=== PATIENT | male | born 1960 | race Asian ===

== ENCOUNTER 2023-06-19 20:04 | Emergency (ER) | payer OTHER ==
[~2023-06-19] VITALS: Ht 160 cm; Wt 78.9 kg
[~2023-06-19 20:04] MED LIST: LISI40TA14 PO
[2023-06-19 20:18] VITALS: BP 110/76; PULSE 90; RESP 11; TEMP 97; O2SAT 95
[2023-06-19] MEDS: NACL 0.9% 1,000 ML IV ONE (20:52)
[2023-06-19] MEDS: methylPREDNISolone SS 125 MG/2 ML VIAL IVP ONE (20:59)
[2023-06-19] MEDS: FAMOTIDINE 20 MG/2 ML VIAL IVP ONE (20:59)
[2023-06-19] MEDS ORDERED: DIPH25TA53 PO (21:51)
[2023-06-19] MEDS ORDERED: ONDA-188 SL (21:51)
[2023-06-19 22:25] VITALS: BP 124/64; PULSE 95; RESP 25; TEMP 98.6; O2SAT 93
== END 2023-06-19 23:04 | disposition home or self-care (01) ==
LOC: MED 20:04
DX: Z00.8 Encounter for other general examination (principal); T36.0X5A Adverse effect of penicillins, initial encounter; Y92.89 Other specified places as the place of occurrence of the external cause
CPT/HCPCS: 96361; 96374; 96375; 99284; J2930; J3490; J7030

== ENCOUNTER 2023-10-28 16:40 | Emergency (ER) | payer OTHER ==
[~2023-10-28] VITALS: Ht 160 cm; Wt 78.0 kg
[~2023-10-28 16:40] MED LIST changes: +DIPH25TA53 PO; +ONDA-188 SL
[2023-10-28 16:48] VITALS: BP 94/60; PULSE 122; RESP 18; TEMP 97.9; O2SAT 93
[2023-10-28 17:06] VITALS: O2SAT 95
[2023-10-28 18:06] LABS: APPEARANCE,URINE CLEAR (CLEAR); BILIRUBIN,URINE 1+ (NEGATIVE); BLOOD, URINE TRACE-I (NEGATIVE); COLOR,URINE YELLOW (YELLOW); LEUKOCYTE ESTERASE ,URINE NEGATIVE (NEGATIVE); NITRITE, URINE NEGATIVE (NEGATIVE); PH,URINE 5.5 (5.0-9.0); PROTEIN,URINE 2+ (NEGATIVE); UGLUCOSE NEGATIVE (NEGATIVE)
[2023-10-28 18:17] LABS: ICTOTEST NEGATIVE (NEGATIVE)
[2023-10-28 18:19] LABS: BACTERIA,URINE >30 (MANY) /HPF (None Seen); MUCUS,URINE 3+ /LPF (None Seen); SQUAMOUS EPITHELIAL CELL,UR >10 (MANY) /LPF (0-3 (FEW)); YEAST,URINE None Seen /HPF (None Seen)
[2023-10-28 18:21] LABS: COARSE GRANULAR CASTS,URINE 0-10 /LPF (None Seen); OTHER CASTS, URINE None Seen /LPF (None Seen); RED BLOOD CELL CASTS,URINE None Seen /LPF (None Seen); WAXY CASTS,URINE None Seen /LPF (None Seen)
[2023-10-28] MEDS: NACL 0.9% 1,000 ML IV ONE (18:33)
[2023-10-28] MEDS: KETOROLAC 30 MG/ML VIAL IVP ONE (18:51)
[2023-10-28 18:57] LABS: FLU A ANTIGEN negative (NEGATIVE); FLU B ANTIGEN negative (NEGATIVE)
[2023-10-28 19:14] VITALS: BP 116/77; PULSE 107; RESP 37; TEMP 98.1; O2SAT 92; O2SAT 95
[2023-10-28] MEDS ORDERED: AZIT250T4 PO (19:15)
[2023-10-28] MEDS ORDERED: PRED20TA5 PO (19:15)
[2023-10-28] MEDS ORDERED: IBUP-2213 PO (19:15)
[2023-10-28] MEDS ORDERED: OMEP40EC24 PO (19:15)
== END 2023-10-28 19:28 | disposition home or self-care (01) ==
LOC: MED 16:40
DX: R10.13 Epigastric pain (principal); J18.9 Pneumonia, unspecified organism; E11.9 Type 2 diabetes mellitus without complications; I10 Essential (primary) hypertension; Z20.822 Contact with and (suspected) exposure to COVID-19; Z95.1 Presence of aortocoronary bypass graft; Z79.899 Other long term (current) drug therapy; Z88.0 Allergy status to penicillin
CPT/HCPCS: 71045; 81001; 82948; 87086; 87426; 87804; 96374; 99284; J1885; J7030

== ENCOUNTER 2023-10-31 04:00 | Inpatient (IN) | payer OTHER ==
[2023-10-31] VITALS (18 sets, daily range): BP systolic 74–156; BP diastolic 28–96; PULSE 60–189; RESP 16–25; TEMP 96.6–98; O2SAT 95–100
[~2023-10-31] VITALS: Ht 162.6 cm; Wt 81.2 kg
[~2023-10-31 04:00] MED LIST changes: +AZIT250T4 PO; +IBUP-2213 PO; +OMEP40EC24 PO; +PRED20TA5 PO
[2023-10-31] MEDS: NACL 0.9% 1,000 ML IV ONE ×2 (04:20→04:43)
[2023-10-31] MEDS ORDERED: LEVOFLOXACIN IV ONE (04:47)
[2023-10-31] MEDS ORDERED: DEXTROSE IV ONE (04:47)
[2023-10-31] MEDS: NOREPINEPHRINE 4 MG in DEXTROSE 5% 250 ML IV ONE (05:03)
[2023-10-31 05:13] LABS: BASOPHILS % (AUTO) 0.2 % (0.0-2.0); EOSINOPHILS # (AUTO) 0.3 K/uL (0-0.4); HEMATOCRIT 39.2 % (36-52); LYMPHOCYTES # (AUTO) 0.2 K/uL (2.0-11.5); LYMPHOCYTES % (AUTO) 1.8 % (20.5-51.1); MEAN CORPUSCULAR HEMOGLOBIN 28 pg (27-31); MEAN CORPUSCULAR HGB CONC 33 g/dL (33-37); MEAN CORPUSCULAR VOLUME 85.6 fL (80-94); MONOCYTES % (AUTO) 0.4 % (1.7-9.3); NEUTROPHILS % (AUTO) 94.6 % (42.2-75.2); PLATELET COUNT (AUTO) 33 K/uL (140-450); RED BLOOD CELL COUNT(AUTO) 4.58 MIL/uL (4.20-6.10); RED CELL DISTRIBUTION WIDTH 13.9 % (11.6-13.7); WHITE BLOOD COUNT (AUTO) 9.5 K/uL (4.8-10.8)
[2023-10-31] MEDS: NOREPINEPHRINE 4 MG/4 ML VIAL IV ONE ×2 (05:27→06:53)
[2023-10-31 05:30] LABS: FLU A ANTIGEN negative (NEGATIVE); FLU B ANTIGEN NEGATIVE (NEGATIVE)
[2023-10-31 05:41] LABS: ALANINE AMINOTRANSFERASE 32 U/L (12-78); ALBUMIN 1.7 g/dL (3.4-5.0); ALKALINE PHOSPHATASE 271 U/L (50-136); ANION GAP 19.2 (8-16); ASPARTATE AMINOTRANSFERASE 30 U/L (15-37); CALCIUM 7.3 mg/dL (8.5-10.1); CARBON DIOXIDE 18.9 mmol/L (21-32); CHLORIDE 91 mmol/L (98-107); GFR ARICAN-AMERICAN 16 mL/min (>90); GFR NON ARICAN-AMERICAN 13 mL/min (>90); POTASSIUM 3.1 mmol/L (3.5-5.1); SODIUM SERUM 126 mmol/L (136-145); TOTAL BILIRUBIN 1.5 mg/dL (0.0-1.0); TOTAL PROTEIN, SERUM 5.4 g/dL (6.4-8.2)
[2023-10-31 05:53] LABS: GLUCOSE 435 mg/dL (74-106); UREA NITROGEN, BLOOD 129 mg/dL (7-18)
[2023-10-31 05:54] LABS: CREATININE 4.7 mg/dL (0.6-1.3)
[2023-10-31] MEDS ORDERED: ATOR10TA PO (06:08)
[2023-10-31] MEDS ORDERED: LOSA-272 PO (06:08)
[2023-10-31] MEDS ORDERED: AMLO5TAB PO (06:08)
[2023-10-31] MEDS ORDERED: CARV12.5 PO (06:08)
[2023-10-31] MEDS ORDERED: METF-1139 PO (06:08)
[2023-10-31] MEDS ORDERED: HYDR-1090 PO (06:08)
[2023-10-31 06:34] LABS: BLOOD GAS BASE EXCESS -10.8 mmol/L (-2.0-2.0); BLOOD GAS HCO3 15.6 mmol/L (22-26); BLOOD GAS PCO2 36.6 mmHg (35-45); BLOOD GAS PH 7.247 (7.35-7.45); BLOOD GAS PO2 102.9 mmHg (75-100)
[2023-10-31 06:35] LABS: BLOOD GAS O2 SAT% 97.3 % (92.0-98.5)
[2023-10-31] MEDS ORDERED: KETOROLAC 15 MG/ML VIAL ONE (06:49)
[2023-10-31] MEDS: NOREPINEPHRINE 16 MG in DEXTROSE 5% 250 ML IV PRN ×2 (08:19→11:55)
[2023-10-31] MEDS: metroNIDAZOLE 500 MG/NS PREMIX 100 ML IV ONE (08:32)
[2023-10-31] MEDS: LEVOFLOXACIN 750 MG/D5W PREMIX 150 ML IV ONE (08:33)
[2023-10-31] MEDS ORDERED: ONDANSETRON 4 MG/2 ML VIAL IVP PRN (08:55)
[2023-10-31] MEDS ORDERED: DEXTROSE 50% 50 ML SYR IVP PRN (09:00)
[2023-10-31] MEDS: DOCUSATE SODIUM 100 MG GELCAP PO SCH (09:00)
[2023-10-31] MEDS: BLOOD GLUCOSE MONITORING 1 DEV DEV FS SCH (09:00)
[2023-10-31] MEDS ORDERED: POTASSIUM CHLORIDE 10 MEQ TABER PO PRN (09:05)
[2023-10-31 09:31] LABS: INR 1.08 (0.8-1.2); PARTIAL THROMBOPLASTIN TIME 29.1 secs (22-35.6); PROTHROMBIN TIME 11.3 secs (10.8-13.4)
[2023-10-31] MEDS ORDERED: MAG SULF 2000 MG/WATER PREMIX 50 ML IV PRN (10:55)
[2023-10-31] MEDS: INSULIN REGULAR, HUMAN 100 UNIT in NACL 0.9% 100 ML IV SCH (11:01)
[2023-10-31] MEDS: MEROPENEM 500 MG in NACL 0.9% 50 ML IV SCH (11:50)
[2023-10-31] MEDS: NACL 0.9% 1,000 ML IV SCH (11:51)
[2023-10-31] MEDS: KCL 20 MEQ IN 100 mL PREMIX 200 ML IV PRN (11:52)
[2023-10-31] MEDS ORDERED: PIPERACILLIN/TAZOBACTAM 2.25 GM in DEXTROSE 5% 50 ML IV SCH (13:00)
[2023-10-31] MEDS: PANTOPRAZOLE 40 MG INJ VIAL IVP SCH (13:00)
[2023-10-31] MEDS: PHENYLEPHRINE 100 MG in NACL 0.9% 250 ML IV PRN (13:24)
[2023-10-31 13:42] LABS: INR 1.04 (0.8-1.2); PARTIAL THROMBOPLASTIN TIME 26.3 secs (22-35.6); PROTHROMBIN TIME 10.9 secs (10.8-13.4)
[2023-10-31 13:45] LABS: CARBON DIOXIDE 14.8 mmol/L (21-32); POTASSIUM 3.8 mmol/L (3.5-5.1)
[2023-10-31 13:47] LABS: CALCIUM 7.3 mg/dL (8.5-10.1)
[2023-10-31 13:48] LABS: CREATININE 4.6 mg/dL (0.6-1.3)
[2023-10-31] MEDS: diphenhydrAMINE 50 MG/ML VIAL ONE (15:13)
[2023-10-31] MEDS: MIDAZOLAM 5 MG/5 ML VIAL ONE (15:13)
[2023-10-31] MEDS: fentaNYL citrate 0.05 MG/ML VIAL ONE ×2 (15:13→20:33)
[2023-10-31] MEDS: LIDOCAINE 1% 500 MG/50 ML VIAL ONE (15:14)
[2023-10-31] MEDS: MORPHINE SULFATE 2 MG/ML SYR IVP PRN (16:31)
[2023-10-31] MEDS: RACEPINEPHRINE 2.25% 13.5 MG/0.5 ML NEBU INH ONE (16:42)
[2023-10-31] MEDS: PROPOFOL 1000 MG/100 ML PREMIX 100 ML IV ONE (17:19)
[2023-10-31] MEDS ORDERED: NACL 0.9% 1,000 ML IV SCH (17:45)
[2023-10-31 18:09] LABS: BLOOD GAS BASE EXCESS -14.6 mmol/L (-2.0-2.0); BLOOD GAS HCO3 14.9 mmol/L (22-26); BLOOD GAS PCO2 48.4 mmHg (35-45); BLOOD GAS PH 7.105 (7.35-7.45); BLOOD GAS PO2 85.8 mmHg (75-100)
[2023-10-31 18:10] LABS: BLOOD GAS O2 SAT% 95.3 % (92.0-98.5)
[2023-10-31] MEDS ORDERED: VASOPRESSIN 40 UNITS in NACL 0.9% 250 ML IV PRN (18:15)
[2023-10-31 18:26] LABS: BASOPHILS % (AUTO) 0.1 % (0.0-2.0); EOSINOPHILS # (AUTO) 0.1 K/uL (0-0.4); EOSINOPHILS % (AUTO) 0.9 % (0.0-4.0); HEMATOCRIT 38.7 % (36-52); HEMOGLOBIN 12.6 g/dL (12.0-18.0); LYMPHOCYTES # (AUTO) 0.5 K/uL (2.0-11.5); LYMPHOCYTES % (AUTO) 3.5 % (20.5-51.1); MEAN CORPUSCULAR HEMOGLOBIN 28 pg (27-31); MEAN CORPUSCULAR HGB CONC 33 g/dL (33-37); MEAN CORPUSCULAR VOLUME 85.5 fL (80-94); MONOCYTES # (AUTO) 0.4 K/uL (0.8-1.0); MONOCYTES % (AUTO) 3.3 % (1.7-9.3); NEUTROPHILS # (AUTO) 12.5 K/uL (1.8-7.7); NEUTROPHILS % (AUTO) 92.2 % (42.2-75.2); PLATELET COUNT (AUTO) 28 K/uL (140-450); RED BLOOD CELL COUNT(AUTO) 4.52 MIL/uL (4.20-6.10); RED CELL DISTRIBUTION WIDTH 14.1 % (11.6-13.7); WHITE BLOOD COUNT (AUTO) 13.5 K/uL (4.8-10.8)
[2023-10-31] MEDS ORDERED: COMMUNICATION ORDER MC PRN (18:40)
[2023-10-31 18:57] LABS: ANION GAP 18.1 (8-16); CALCIUM 6.8 mg/dL (8.5-10.1); POTASSIUM 4.1 mmol/L (3.5-5.1)
[2023-10-31] MEDS: HYDROCORTISONE NA SUCC 100 MG/2 ML VIAL IV SCH (18:57)
[2023-10-31 19:03] LABS: CREATININE 4.1 mg/dL (0.6-1.3)
[2023-10-31 19:19] LABS: AMYLASE 90 U/L (25-115); LIPASE 223 U/L (16-77)
[2023-10-31] MEDS: fentaNYL citrate 1 MG in NACL 0.9% 80 ML IV PRN (20:10)
[2023-10-31] MEDS: ALBUTEROL SULFATE/IPRATROPIU 3 ML SOL IH SCH (20:11)
[2023-10-31] MEDS: MIDAZOLAM MDV 50 MG in NACL 0.9% 40 ML IV PRN (20:25)
[2023-10-31] MEDS: MIDAZOLAM MDV 50 MG/10 ML VIAL IV ONE (20:33)
[2023-10-31] MEDS ORDERED: MEROPENEM 500 MG in NACL 0.9% 50 ML IV SCH (21:00)
[2023-10-31] MEDS: VASOPRESSIN 40 UNITS in NACL 0.9% 250 ML IV PRN (21:02)
[2023-10-31 21:28] LABS: ANION GAP 18.4 (8-16); CALCIUM 6.7 mg/dL (8.5-10.1); CARBON DIOXIDE 18.8 mmol/L (21-32); CREATININE 3.7 mg/dL (0.6-1.3); POTASSIUM 4.2 mmol/L (3.5-5.1)
[2023-10-31] MEDS: SODIUM BICARBONATE 8.4% PFS 50 MEQ/50 ML SYR IVP SCH (23:24)
[2023-10-31 23:49] LABS: BLOOD GAS PCO2 36.5 mmHg (35-45); BLOOD GAS PH 7.203 (7.35-7.45); BLOOD GAS PO2 133.6 mmHg (75-100)
[2023-10-31 23:50] LABS: BLOOD GAS O2 SAT% 98.7 % (92.0-98.5)
[2023-11-01] VITALS (34 sets, daily range): BP systolic 83–133; BP diastolic 52–84; PULSE 61–84; RESP 10–22; TEMP 96.2–98.5; O2SAT 95–100
[2023-11-01] MEDS: DEXT 5% / NACL 0.45% 1,000 ML IV SCH (01:10)
[2023-11-01 01:50] LABS: ANION GAP 13.3 (8-16); CALCIUM 6.9 mg/dL (8.5-10.1); CARBON DIOXIDE 23.8 mmol/L (21-32); CREATININE 3.6 mg/dL (0.6-1.3); POTASSIUM 4.1 mmol/L (3.5-5.1)
[2023-11-01 04:10] LABS: BASOPHILS % (AUTO) 0.1 % (0.0-2.0); HEMATOCRIT 35.7 % (36-52); LYMPHOCYTES # (AUTO) 0.3 K/uL (2.0-11.5); LYMPHOCYTES % (AUTO) 3.5 % (20.5-51.1); MEAN CORPUSCULAR HEMOGLOBIN 28 pg (27-31); MEAN CORPUSCULAR HGB CONC 34 g/dL (33-37); MEAN CORPUSCULAR VOLUME 84.1 fL (80-94); MONOCYTES # (AUTO) 0.3 K/uL (0.8-1.0); MONOCYTES % (AUTO) 3.4 % (1.7-9.3); NEUTROPHILS # (AUTO) 7.4 K/uL (1.8-7.7); PLATELET COUNT (AUTO) 33 K/uL (140-450); RED BLOOD CELL COUNT(AUTO) 4.24 MIL/uL (4.20-6.10); RED CELL DISTRIBUTION WIDTH 13.9 % (11.6-13.7); WHITE BLOOD COUNT (AUTO) 7.9 K/uL (4.8-10.8)
[2023-11-01 04:34] LABS: ALBUMIN 1.6 g/dL (3.4-5.0); ANION GAP 16.6 (8-16); CALCIUM 6.7 mg/dL (8.5-10.1); CARBON DIOXIDE 18.9 mmol/L (21-32); CREATININE 3.5 mg/dL (0.6-1.3); POTASSIUM 3.5 mmol/L (3.5-5.1); TOTAL BILIRUBIN 1.3 mg/dL (0.0-1.0); TOTAL PROTEIN, SERUM 5.2 g/dL (6.4-8.2)
[2023-11-01 08:13] LABS: BLOOD GAS PCO2 31.1 mmHg (35-45); BLOOD GAS PO2 112.9 mmHg (75-100)
[2023-11-01 08:14] LABS: BLOOD GAS BASE EXCESS -9.8 mmol/L (-2.0-2.0); BLOOD GAS HCO3 15.3 mmol/L (22-26); BLOOD GAS O2 SAT% 98.3 % (92.0-98.5)
[2023-11-01 08:28] LABS: ANION GAP 15.5 (8-16); CALCIUM 6.9 mg/dL (8.5-10.1); CARBON DIOXIDE 19.1 mmol/L (21-32); CREATININE 3.5 mg/dL (0.6-1.3); POTASSIUM 3.6 mmol/L (3.5-5.1)
[2023-11-01] MEDS: HYDROCORTISONE NA SUCC 100 MG/2 ML VIAL IV SCH (09:08)
[2023-11-01] MEDS: MIDAZOLAM 2 MG/2 ML VIAL ONE (10:23)
[2023-11-01] MEDS: ETOMIDATE 20 MG/10 ML VIAL IVP ONE (10:24)
[2023-11-01] MEDS: DEXAMETHASONE 4 MG/ML VIAL ONE (10:25)
[2023-11-01] MEDS: ONDANSETRON 4 MG/2 ML VIAL ONE (10:25)
[2023-11-01] MEDS: SUCCINYLCHOLINE CHLORIDE 200 MG/10 ML VIAL IVP ONE (10:25)
[2023-11-01] MEDS: WATER STERILE 10 ML MC ONE ×2 (10:25→10:26)
[2023-11-01] MEDS ORDERED: NOREPINEPHRINE 4 MG in DEXTROSE 5% 250 ML IV PRN (10:25)
[2023-11-01] MEDS: ROCURONIUM 50 MG/5 ML VIAL IV ONE ×2 (10:25→11:56)
[2023-11-01] MEDS: PHENYLEPHRINE 10 MG/ML VIAL ONE (10:25)
[2023-11-01] MEDS ORDERED: SEVOFLURANE 250 ML BTL INH ONE (11:07)
[2023-11-01] MEDS: BUPIVACAINE-MPF 0.25% 30 ML VIAL INJ ONE (11:37)
[2023-11-01] MEDS: LIDOCAINE/EPI 1% 1:100000 20 ML VIAL INJ ONE (11:37)
[2023-11-01 13:21] LABS: ANION GAP 13.3 (8-16); CALCIUM 6.6 mg/dL (8.5-10.1); CARBON DIOXIDE 20.5 mmol/L (21-32); POTASSIUM 3.8 mmol/L (3.5-5.1)
[2023-11-01 14:02] LABS: BASOPHILS % (AUTO) 0.2 % (0.0-2.0); EOSINOPHILS % (AUTO) 0.2 % (0.0-4.0); HEMATOCRIT 35.9 % (36-52); HEMOGLOBIN 11.8 g/dL (12.0-18.0); LYMPHOCYTES # (AUTO) 0.3 K/uL (2.0-11.5); LYMPHOCYTES % (AUTO) 3.1 % (20.5-51.1); MEAN CORPUSCULAR HEMOGLOBIN 28 pg (27-31); MEAN CORPUSCULAR HGB CONC 33 g/dL (33-37); MEAN CORPUSCULAR VOLUME 85.5 fL (80-94); MONOCYTES # (AUTO) 0.1 K/uL (0.8-1.0); MONOCYTES % (AUTO) 1.4 % (1.7-9.3); NEUTROPHILS # (AUTO) 8.5 K/uL (1.8-7.7); NEUTROPHILS % (AUTO) 95.1 % (42.2-75.2); PLATELET COUNT (AUTO) 33 K/uL (140-450); WHITE BLOOD COUNT (AUTO) 8.9 K/uL (4.8-10.8)
[2023-11-01 14:55] LABS: BLOOD GAS PH 7.228 (7.35-7.45)
[2023-11-01 14:56] LABS: BLOOD GAS BASE EXCESS -9.4 mmol/L (-2.0-2.0); BLOOD GAS HCO3 17.9 mmol/L (22-26); BLOOD GAS O2 SAT% 95.1 % (92.0-98.5); BLOOD GAS PCO2 43.9 mmHg (35-45); BLOOD GAS PO2 80.8 mmHg (75-100)
[2023-11-01] MEDS ORDERED: SODIUM BICARBONATE 8.4% PFS 50 MEQ/50 ML SYR IVP ONE (15:50)
[2023-11-01] MEDS: SODIUM BICARBONATE 8.4% PFS 50 MEQ/50 ML SYR IVP SCH (15:55)
[2023-11-01] MEDS: SODIUM BICARBONATE 8.4% PFS 50 MEQ/50 ML SYR IVP ONE (15:55)
[2023-11-01 16:35] LABS: CALCIUM 6.6 mg/dL (8.5-10.1); CARBON DIOXIDE 22.6 mmol/L (21-32); CREATININE 2.7 mg/dL (0.6-1.3); POTASSIUM 3.6 mmol/L (3.5-5.1)
[2023-11-01 20:40] LABS: ANION GAP 15.3 (8-16); CALCIUM 6.7 mg/dL (8.5-10.1); CARBON DIOXIDE 22.1 mmol/L (21-32); CREATININE 2.7 mg/dL (0.6-1.3); POTASSIUM 3.4 mmol/L (3.5-5.1)
[2023-11-02] VITALS (32 sets, daily range): BP systolic 87–141; BP diastolic 51–85; PULSE 6–88; RESP 12–28; TEMP 97.1–98.7; O2SAT 97–100
[2023-11-02 00:18] LABS: HEMATOCRIT 36.2 % (36-52); HEMOGLOBIN 12.3 g/dL (12.0-18.0); LYMPHOCYTES # (AUTO) 0.3 K/uL (2.0-11.5); LYMPHOCYTES % (AUTO) 3.2 % (20.5-51.1); MEAN CORPUSCULAR HEMOGLOBIN 29 pg (27-31); MEAN CORPUSCULAR HGB CONC 34 g/dL (33-37); MONOCYTES # (AUTO) 0.6 K/uL (0.8-1.0); MONOCYTES % (AUTO) 5.6 % (1.7-9.3); NEUTROPHILS # (AUTO) 9.7 K/uL (1.8-7.7); NEUTROPHILS % (AUTO) 91.2 % (42.2-75.2); PLATELET COUNT (AUTO) 44 K/uL (140-450); RED BLOOD CELL COUNT(AUTO) 4.25 MIL/uL (4.20-6.10); WHITE BLOOD COUNT (AUTO) 10.7 K/uL (4.8-10.8)
[2023-11-02 00:36] LABS: INR 1.17 (0.8-1.2); PROTHROMBIN TIME 12.2 secs (10.8-13.4)
[2023-11-02 00:39] LABS: PHOSPHORUS 4.4 mg/dL (2.5-4.9)
[2023-11-02 00:41] LABS: ALBUMIN 1.8 g/dL (3.4-5.0); ANION GAP 12.2 (8-16); CALCIUM 6.9 mg/dL (8.5-10.1); CARBON DIOXIDE 24.1 mmol/L (21-32); CREATININE 2.6 mg/dL (0.6-1.3); POTASSIUM 3.3 mmol/L (3.5-5.1); TOTAL BILIRUBIN 1.8 mg/dL (0.0-1.0); TOTAL PROTEIN, SERUM 5.3 g/dL (6.4-8.2)
[2023-11-02 06:05] LABS: HEMOGLOBIN 12.3 g/dL (12.0-18.0)
[2023-11-02 06:17] LABS: BASOPHILS % (AUTO) 0.2 % (0.0-2.0); HEMATOCRIT 36.4 % (36-52); LYMPHOCYTES # (AUTO) 0.5 K/uL (2.0-11.5); LYMPHOCYTES % (AUTO) 4.3 % (20.5-51.1); MEAN CORPUSCULAR HEMOGLOBIN 29 pg (27-31); MEAN CORPUSCULAR HGB CONC 34 g/dL (33-37); MEAN CORPUSCULAR VOLUME 84.9 fL (80-94); MONOCYTES # (AUTO) 0.6 K/uL (0.8-1.0); MONOCYTES % (AUTO) 5.8 % (1.7-9.3); NEUTROPHILS # (AUTO) 9.8 K/uL (1.8-7.7); NEUTROPHILS % (AUTO) 89.7 % (42.2-75.2); PLATELET COUNT (AUTO) 41 K/uL (140-450); RED BLOOD CELL COUNT(AUTO) 4.29 MIL/uL (4.20-6.10); WHITE BLOOD COUNT (AUTO) 10.9 K/uL (4.8-10.8)
[2023-11-02 06:21] LABS: CALCIUM 7.1 mg/dL (8.5-10.1); CARBON DIOXIDE 22.5 mmol/L (21-32); CREATININE 2.4 mg/dL (0.6-1.3); POTASSIUM 3.5 mmol/L (3.5-5.1)
[2023-11-02 08:30] LABS: CALCIUM 6.9 mg/dL (8.5-10.1); CARBON DIOXIDE 23.6 mmol/L (21-32); CREATININE 2.4 mg/dL (0.6-1.3); POTASSIUM 3.6 mmol/L (3.5-5.1)
[2023-11-02 09:04] LABS: ALBUMIN 1.8 g/dL (3.4-5.0); BILIRUBIN,DIRECT 1.1 mg/dL (0.0-0.3); MAGNESIUM 1.9 mg/dL (1.8-2.4); PHOSPHORUS 4.4 mg/dL (2.5-4.9); TOTAL BILIRUBIN 1.8 mg/dL (0.0-1.0)
[2023-11-02 09:08] LABS: BLOOD GAS BASE EXCESS -4.8 mmol/L (-2.0-2.0); BLOOD GAS HCO3 21.7 mmol/L (22-26); BLOOD GAS O2 SAT% 98.4 % (92.0-98.5); BLOOD GAS PCO2 45.9 mmHg (35-45); BLOOD GAS PH 7.293 (7.35-7.45); BLOOD GAS PO2 135.2 mmHg (75-100)
[2023-11-02 09:34] LABS: INR 1.15 (0.8-1.2); PARTIAL THROMBOPLASTIN TIME 23.2 secs (22-35.6)
[2023-11-02] MEDS: DOCUSATE 100 MG/10 ML UDC NG SCH (10:52)
[2023-11-02 12:08] LABS: ANION GAP 13.3 (8-16); CALCIUM 7.2 mg/dL (8.5-10.1); CARBON DIOXIDE 26.3 mmol/L (21-32); CREATININE 2.4 mg/dL (0.6-1.3); POTASSIUM 3.6 mmol/L (3.5-5.1)
[2023-11-02 12:13] LABS: MAGNESIUM 2.3 mg/dL (1.8-2.4); PHOSPHORUS 4.7 mg/dL (2.5-4.9)
[2023-11-02] MEDS: ALBUTEROL SULFATE/IPRATROPIU 3 ML SOL IH PRN (14:39)
[2023-11-02] MEDS ORDERED: NON ADHERENT DRESSING TP PRN (14:45)
[2023-11-02] MEDS: POLYETHYLENE GLYCOL 17 GM/PKT PO SCH (14:55)
[2023-11-02] MEDS: FUROSEMIDE 20 MG/2 ML VIAL IVP SCH (14:57)
[2023-11-02] MEDS: INSULIN LANTUS 100 UNITS/ML 10 ML VIAL SUBQ SCH (15:28)
[2023-11-02] MEDS: FOAM DRESSING TP SCH (15:37)
[2023-11-02] MEDS: ALBUMIN HUMAN 25% 100 ML IV SCH (16:39)
[2023-11-02] MEDS: BLOOD GLUCOSE MONITORING 1 DEV DEV FS SCH (18:51)
[2023-11-03] VITALS (31 sets, daily range): BP systolic 119–175; BP diastolic 56–111; PULSE 69–105; RESP 12–24; TEMP 97.5–99.1; O2SAT 96–100
[2023-11-03] MEDS: INSULIN LISPRO SLIDING SCALE 100 UNITS/ML VIAL SUBQ PRN (00:20)
[2023-11-03 05:20] LABS: BASOPHILS % (AUTO) 0.1 % (0.0-2.0); HEMATOCRIT 35.7 % (36-52); HEMOGLOBIN 11.9 g/dL (12.0-18.0); LYMPHOCYTES # (AUTO) 0.5 K/uL (2.0-11.5); LYMPHOCYTES % (AUTO) 3.6 % (20.5-51.1); MEAN CORPUSCULAR HEMOGLOBIN 28 pg (27-31); MEAN CORPUSCULAR HGB CONC 33 g/dL (33-37); MEAN CORPUSCULAR VOLUME 85.2 fL (80-94); MONOCYTES % (AUTO) 0.1 % (1.7-9.3); NEUTROPHILS # (AUTO) 13.9 K/uL (1.8-7.7); PLATELET COUNT (AUTO) 58 K/uL (140-450); RED BLOOD CELL COUNT(AUTO) 4.19 MIL/uL (4.20-6.10); WHITE BLOOD COUNT (AUTO) 14.5 K/uL (4.8-10.8)
[2023-11-03] MEDS: LORazepam 1 MG TAB PO PRN (05:43)
[2023-11-03 06:04] LABS: NEUTROPHILS % (AUTO) 96.2 % (42.2-75.2)
[2023-11-03] MEDS ORDERED: MIDAZOLAM MDV 100 MG in NACL 0.9% 80 ML IV PRN (08:20)
[2023-11-03 09:10] LABS: BLOOD GAS PH 7.349 (7.35-7.45); BLOOD GAS PO2 75.3 mmHg (75-100)
[2023-11-03 09:11] LABS: BLOOD GAS BASE EXCESS -1.6 mmol/L (-2.0-2.0); BLOOD GAS HCO3 24.2 mmol/L (22-26); BLOOD GAS O2 SAT% 93.6 % (92.0-98.5)
[2023-11-03 11:00] LABS: ANION GAP 12.1 (8-16); CALCIUM 8.2 mg/dL (8.5-10.1); CARBON DIOXIDE 27.1 mmol/L (21-32); POTASSIUM 3.2 mmol/L (3.5-5.1)
[2023-11-03] MEDS: ALBUTEROL SULFATE/IPRATROPIU 3 ML SOL IH SCH (12:03)
[2023-11-03] MEDS: NON ADHERENT DRESSING TP SCH (13:02)
[2023-11-03] MEDS: PROPOFOL 1000 MG/100 ML PREMIX 100 ML IV PRN (14:06)
[2023-11-03] MEDS: POLYETHYLENE GLYCOL 17 GM/PKT PO SCH (15:19)
[2023-11-03] MEDS ORDERED: SODIUM PHOSPHATE 118 ML ENEM RC ONE (20:00)
[2023-11-03] MEDS ORDERED: MEROPENEM 1,000 MG VIAL IV ONE (20:14)
[2023-11-03] MEDS: MEROPENEM 1,000 MG in NACL 0.9% 100 ML IV SCH (20:17)
[2023-11-03] MEDS ORDERED: MINERAL OIL 135 ML ENEM RC SCH (20:35)
[2023-11-03] MEDS ORDERED: MEROPENEM 500 MG in NACL 0.9% 50 ML IV SCH (21:00)
[2023-11-03] MEDS: INSULIN LANTUS 100 UNITS/ML 10 ML VIAL SUBQ SCH (21:43)
[2023-11-04] VITALS (29 sets, daily range): BP systolic 118–189; BP diastolic 76–115; PULSE 69–107; RESP 12–25; TEMP 97.8–98.8; O2SAT 94–100
[2023-11-04] MEDS: hydrALAZINE 20 MG/ML VIAL IVP PRN ×2 (00:41→23:05)
[2023-11-04] MEDS: MORPHINE SULFATE 4 MG/ML SYR IVP PRN (03:05)
[2023-11-04] MEDS: FOAM DRESSING TP PRN (04:02)
[2023-11-04 05:25] LABS: HEMATOCRIT 37.9 % (36-52); HEMOGLOBIN 12.6 g/dL (12.0-18.0); MEAN CORPUSCULAR HEMOGLOBIN 28 pg (27-31); MEAN CORPUSCULAR HGB CONC 33 g/dL (33-37); MEAN CORPUSCULAR VOLUME 85.3 fL (80-94); PLATELET COUNT (AUTO) 92 K/uL (140-450); RED BLOOD CELL COUNT(AUTO) 4.44 MIL/uL (4.20-6.10); WHITE BLOOD COUNT (AUTO) 14.6 K/uL (4.8-10.8)
[2023-11-04 05:50] LABS: EOSINOPHILS % (MANUAL) 1 % (0-4); LYMPHOCYTES % (MANUAL) 2 % (20-46); MONOCYTES % (MANUAL) 5 % (5-12)
[2023-11-04 05:56] LABS: ALBUMIN 2.2 g/dL (3.4-5.0); ANION GAP 11.1 (8-16); CALCIUM 8.4 mg/dL (8.5-10.1); CARBON DIOXIDE 29.9 mmol/L (21-32); CREATININE 1.5 mg/dL (0.6-1.3); TOTAL BILIRUBIN 2.5 mg/dL (0.0-1.0)
[2023-11-04] MEDS: ALBUTEROL SULFATE/IPRATROPIU 3 ML SOL IH SCH (07:17)
[2023-11-04] MEDS: MEROPENEM 1,000 MG in NACL 0.9% 50 ML IV SCH (09:46)
[2023-11-04] MEDS: POTASSIUM CHLORIDE 20% 40 MEQ/15 ML UDC GT SCH (15:24)
[2023-11-04] MEDS: DEXT 5% / NACL 0.45% 1,000 ML IV SCH (16:27)
[2023-11-04] MEDS: BLOOD GLUCOSE MONITORING 1 DEV DEV FS SCH (20:56)
[2023-11-04] MEDS: ZOLPIDEM 5 MG TAB PO PRN (22:04)
[2023-11-05] VITALS (13 sets, daily range): BP systolic 156–186; BP diastolic 89–113; PULSE 77–113; RESP 12–28; TEMP 98–100.4; O2SAT 93–96
[2023-11-05 05:06] LABS: BASOPHILS # (AUTO) 0.1 K/uL (0.00-0.22); BASOPHILS % (AUTO) 0.4 % (0.0-2.0); EOSINOPHILS % (AUTO) 0.1 % (0.0-4.0); HEMATOCRIT 41.7 % (36-52); HEMOGLOBIN 13.7 g/dL (12.0-18.0); LYMPHOCYTES % (AUTO) 5.5 % (20.5-51.1); MEAN CORPUSCULAR HEMOGLOBIN 28 pg (27-31); MEAN CORPUSCULAR HGB CONC 33 g/dL (33-37); MEAN CORPUSCULAR VOLUME 84.9 fL (80-94); MONOCYTES # (AUTO) 0.6 K/uL (0.8-1.0); MONOCYTES % (AUTO) 3.3 % (1.7-9.3); NEUTROPHILS # (AUTO) 16.4 K/uL (1.8-7.7); NEUTROPHILS % (AUTO) 90.7 % (42.2-75.2); PLATELET COUNT (AUTO) 128 K/uL (140-450); RED BLOOD CELL COUNT(AUTO) 4.91 MIL/uL (4.20-6.10); RED CELL DISTRIBUTION WIDTH 13.9 % (11.6-13.7); WHITE BLOOD COUNT (AUTO) 18.1 K/uL (4.8-10.8)
[2023-11-05] MEDS: ACETAMINOPHEN 325 MG TAB PO PRN (08:00)
[2023-11-05 08:04] LABS: ANION GAP 10.5 (8-16); CALCIUM 8.3 mg/dL (8.5-10.1); CARBON DIOXIDE 32.6 mmol/L (21-32); CREATININE 1.2 mg/dL (0.6-1.3); POTASSIUM 3.1 mmol/L (3.5-5.1)
[2023-11-05] MEDS: METOPROLOL 25 MG TAB PO SCH (09:31)
[2023-11-05] MEDS: INSULIN LANTUS 100 UNITS/ML 10 ML VIAL SUBQ SCH (09:36)
[2023-11-05] MEDS: DEXTROSE 5% 1,000 ML IV ONE (12:29)
[2023-11-06] VITALS (14 sets, daily range): BP systolic 109–173; BP diastolic 76–90; PULSE 67–101; RESP 17–21; TEMP 97.1–98.9; O2SAT 3–99
[2023-11-06 05:03] LABS: BASOPHILS # (AUTO) 0.1 K/uL (0.00-0.22); BASOPHILS % (AUTO) 0.4 % (0.0-2.0); EOSINOPHILS # (AUTO) 0.1 K/uL (0-0.4); EOSINOPHILS % (AUTO) 0.6 % (0.0-4.0); HEMATOCRIT 38.5 % (36-52); HEMOGLOBIN 12.7 g/dL (12.0-18.0); LYMPHOCYTES # (AUTO) 1.4 K/uL (2.0-11.5); LYMPHOCYTES % (AUTO) 8.8 % (20.5-51.1); MEAN CORPUSCULAR HEMOGLOBIN 28 pg (27-31); MEAN CORPUSCULAR HGB CONC 33 g/dL (33-37); MEAN CORPUSCULAR VOLUME 85.2 fL (80-94); MONOCYTES # (AUTO) 0.5 K/uL (0.8-1.0); MONOCYTES % (AUTO) 3.2 % (1.7-9.3); NEUTROPHILS # (AUTO) 13.7 K/uL (1.8-7.7); PLATELET COUNT (AUTO) 129 K/uL (140-450); RED BLOOD CELL COUNT(AUTO) 4.52 MIL/uL (4.20-6.10); RED CELL DISTRIBUTION WIDTH 13.8 % (11.6-13.7); WHITE BLOOD COUNT (AUTO) 15.8 K/uL (4.8-10.8)
[2023-11-06 05:13] LABS: ANION GAP 9.6 (8-16); CALCIUM 7.6 mg/dL (8.5-10.1); CARBON DIOXIDE 32.4 mmol/L (21-32); CREATININE 1.1 mg/dL (0.6-1.3)
[2023-11-07] VITALS (9 sets, daily range): BP systolic 130–155; BP diastolic 69–80; PULSE 69–89; RESP 18–20; TEMP 97.2–97.9; O2SAT 93–99
[2023-11-07] MEDS ORDERED: METO25TA PO (11:03)
[2023-11-07] MEDS ORDERED: CIPR500T4 PO (11:03)
[2023-11-07] MEDS ORDERED: METR-520 PO (11:03)
== END 2023-11-07 15:00 | disposition home or self-care (01) | DRG 853 ==
LOC: MED 04:00 → MIC 09:04 → MTU 11-06 07:30
PROVIDERS: ADMIT Student in an Organized Health Care Education/Training Program; ATTEND Student in an Organized Health Care Education/Training Program
PROC: 0BJ08ZZ Inspection of Tracheobronchial Tree, Via Natural or Artificial Opening Endoscopic (ICD-10-PCS; 2023-10-31)
PROC: 02HV33Z Insertion of Infusion Device into Superior Vena Cava, Percutaneous Approach (ICD-10-PCS; 2023-10-31)
PROC: B548ZZA Ultrasonography of Superior Vena Cava, Guidance (ICD-10-PCS; 2023-10-31)
PROC: 0BH17EZ Insertion of Endotracheal Airway into Trachea, Via Natural or Artificial Opening (ICD-10-PCS; 2023-10-31)
PROC: 5A1945Z Respiratory Ventilation, 24-96 Consecutive Hours (ICD-10-PCS; 2023-10-31)
PROC: 0F9430Z Drainage of Gallbladder with Drainage Device, Percutaneous Approach (ICD-10-PCS; 2023-10-31)
PROC: 0FT40ZZ Resection of Gallbladder, Open Approach (ICD-10-PCS; 2023-11-01)
PROC: 30233K1 Transfusion of Nonautologous Frozen Plasma into Peripheral Vein, Percutaneous Approach (ICD-10-PCS; 2023-11-01)
PROC: 30233N1 Transfusion of Nonautologous Red Blood Cells into Peripheral Vein, Percutaneous Approach (ICD-10-PCS; 2023-11-01)
PROC: 30233R1 Transfusion of Nonautologous Platelets into Peripheral Vein, Percutaneous Approach (ICD-10-PCS; 2023-11-01)
PROC: 0F900ZZ Drainage of Liver, Open Approach (ICD-10-PCS; principal; 2023-11-01 10:00)
DX: A41.9 Sepsis, unspecified organism (principal); E11.10 Type 2 diabetes mellitus with ketoacidosis without coma; R65.21 Severe sepsis with septic shock; J96.01 Acute respiratory failure with hypoxia; K75.0 Abscess of liver; N17.9 Acute kidney failure, unspecified; K80.00 Calculus of gallbladder with acute cholecystitis without obstruction; E87.6 Hypokalemia; D69.59 Other secondary thrombocytopenia; E66.01 Morbid (severe) obesity due to excess calories; I10 Essential (primary) hypertension; N20.0 Calculus of kidney; Z20.822 Contact with and (suspected) exposure to COVID-19; B96.20 Unspecified Escherichia coli [E. coli] as the cause of diseases classified elsewhere; I25.10 Atherosclerotic heart disease of native coronary artery without angina pectoris; Z88.1 Allergy status to other antibiotic agents; Z95.1 Presence of aortocoronary bypass graft; Z90.49 Acquired absence of other specified parts of digestive tract; Z88.0 Allergy status to penicillin
CPT/HCPCS: 31500; 36415; 36430; 36556; 36600; 71045; 71250; 74018; 75989; 76770; 78582; 80048; 80053; 82009; 82040; 82150; 82247; 82248; 82803; 82948; 83036; 83605; 83690; 83735; 83880; 84100; 84450; 84484; 85025; 85379; 85384; 85610; 85730; 86886; 86900; 86901; 86920; 87040; 87070; 87075; 87081; 87086; 87186; 87205; 88304; 92526; 93005; 93971; 94002; 94003; 94640; 96374; 96375; 97116; 97163-GP; 99291; J0330; J0360; J1100; J1200; J1720; J1815; J1885; J1940; J1956; J2001; J2185; J2250; J2270; J2405; J2470; J2704; J3010; J3480; J3490; J7030; J7060; J7120; P9016; P9017; P9035; P9046; Q0092

== ENCOUNTER 2023-11-09 19:17 | Inpatient (IN) | payer OTHER ==
[~2023-11-09] VITALS: Ht 167.6 cm; Wt 87.1 kg
[~2023-11-09 19:17] MED LIST changes: +AMLO5TAB PO; +ATOR10TA PO; -AZIT250T4 PO; +CIPR500T4 PO; -DIPH25TA53 PO; +HYDR-1090 PO; +LOSA-272 PO; +METF-1139 PO; +METO25TA PO; +METR-520 PO; -PRED20TA5 PO
[2023-11-09 19:46] VITALS: BP 139/76; PULSE 86; RESP 14; TEMP 98.6; O2SAT 99
[2023-11-09 22:32] LABS: BASOPHILS % (AUTO) 0.1 % (0.0-2.0); EOSINOPHILS # (AUTO) 0.2 K/uL (0-0.4); EOSINOPHILS % (AUTO) 1.2 % (0.0-4.0); HEMATOCRIT 34.9 % (36-52); HEMOGLOBIN 11.6 g/dL (12.0-18.0); LYMPHOCYTES # (AUTO) 0.8 K/uL (2.0-11.5); LYMPHOCYTES % (AUTO) 5.7 % (20.5-51.1); MEAN CORPUSCULAR HEMOGLOBIN 29 pg (27-31); MEAN CORPUSCULAR HGB CONC 33 g/dL (33-37); MEAN CORPUSCULAR VOLUME 85.5 fL (80-94); MONOCYTES # (AUTO) 0.5 K/uL (0.8-1.0); MONOCYTES % (AUTO) 3.5 % (1.7-9.3); NEUTROPHILS # (AUTO) 12.7 K/uL (1.8-7.7); NEUTROPHILS % (AUTO) 89.5 % (42.2-75.2); PLATELET COUNT (AUTO) 201 K/uL (140-450); RED BLOOD CELL COUNT(AUTO) 4.08 MIL/uL (4.20-6.10); RED CELL DISTRIBUTION WIDTH 13.4 % (11.6-13.7); WHITE BLOOD COUNT (AUTO) 14.2 K/uL (4.8-10.8)
[2023-11-09 23:15] LABS: ANION GAP 9.9 (8-16); CALCIUM 7.8 mg/dL (8.5-10.1); CARBON DIOXIDE 29.8 mmol/L (21-32); CREATININE 1.5 mg/dL (0.6-1.3); POTASSIUM 3.7 mmol/L (3.5-5.1); TOTAL BILIRUBIN 0.9 mg/dL (0.0-1.0); TOTAL PROTEIN, SERUM 5.4 g/dL (6.4-8.2)
[2023-11-10] VITALS (7 sets, daily range): BP systolic 106–150; BP diastolic 73–86; PULSE 76–105; RESP 18–20; TEMP 96.9–98; O2SAT 96–100
[2023-11-10 02:36] LABS: INR 0.98 (0.8-1.2); PROTHROMBIN TIME 10.3 secs (10.8-13.4)
[2023-11-10] MEDS: CIPROFLOXACIN 400 MG/200ML-D5W 200 ML IV ONE (02:46)
[2023-11-10] MEDS ORDERED: DEXT 5% /NACL 0.9% 1,000 ML IV SCH (02:55)
[2023-11-10] MEDS ORDERED: ALBUTEROL 0.083% 2.5 MG/3 ML NEBU INH PRN (02:55)
[2023-11-10] MEDS ORDERED: MORPHINE SULFATE 2 MG/ML SYR IVP PRN ×3 (02:55→04:00)
[2023-11-10] MEDS ORDERED: VANCOMYCIN PER PHARMACY MC PRN ×2 (02:55→03:00)
[2023-11-10] MEDS ORDERED: ONDANSETRON 4 MG/2 ML VIAL IVP PRN (02:55)
[2023-11-10] MEDS ORDERED: DEXTROSE 50% 50 ML SYR IVP PRN ×2 (03:15→04:45)
[2023-11-10] MEDS: metroNIDAZOLE 500 MG/NS PREMIX 100 ML IV ONE (03:23)
[2023-11-10] MEDS ORDERED: VANCOMYCIN 1,000 MG in DEXTROSE 5% 250 ML IV SCH (03:30)
[2023-11-10] MEDS ORDERED: MORPHINE SULFATE 4 MG/ML SYR IVP PRN ×2 (03:45→04:00)
[2023-11-10] MEDS: BLOOD GLUCOSE MONITORING 1 DEV DEV FS SCH (07:00)
[2023-11-10] MEDS ORDERED: BLOOD GLUCOSE MONITORING 1 DEV DEV FS SCH (07:30)
[2023-11-10] MEDS ORDERED: metroNIDAZOLE 500 MG/NS PREMIX 100 ML IV SCH (13:00)
[2023-11-10] MEDS: CIPROFLOXACIN 400 MG/200ML-D5W 200 ML IV SCH (15:49)
[2023-11-10] MEDS: INSULIN LISPRO SLIDING SCALE 100 UNITS/ML VIAL SUBQ PRN (17:40)
[2023-11-10] MEDS: metroNIDAZOLE 500 MG/NS PREMIX 100 ML IV SCH (21:01)
[2023-11-11] VITALS (7 sets, daily range): BP systolic 119–140; BP diastolic 55–85; PULSE 78–106; RESP 18–20; TEMP 97.4–98.5; O2SAT 95–98
[2023-11-11] MEDS ORDERED: HYDROXYZINE HYDROCHLORIDE 25 MG TAB PO PRN (14:10)
[2023-11-11 15:34] LABS: ANION GAP 9.5 (8-16); CARBON DIOXIDE 27.4 mmol/L (21-32); CREATININE 1.5 mg/dL (0.6-1.3); POTASSIUM 3.9 mmol/L (3.5-5.1)
[2023-11-11 15:52] LABS: BASOPHILS % (AUTO) 0.4 % (0.0-2.0); EOSINOPHILS # (AUTO) 0.2 K/uL (0-0.4); EOSINOPHILS % (AUTO) 1.5 % (0.0-4.0); HEMATOCRIT 33.6 % (36-52); LYMPHOCYTES % (AUTO) 9.1 % (20.5-51.1); MEAN CORPUSCULAR HEMOGLOBIN 28 pg (27-31); MEAN CORPUSCULAR HGB CONC 33 g/dL (33-37); MEAN CORPUSCULAR VOLUME 86.4 fL (80-94); MONOCYTES # (AUTO) 0.6 K/uL (0.8-1.0); MONOCYTES % (AUTO) 5.7 % (1.7-9.3); NEUTROPHILS # (AUTO) 9.2 K/uL (1.8-7.7); NEUTROPHILS % (AUTO) 83.3 % (42.2-75.2); PLATELET COUNT (AUTO) 284 K/uL (140-450); RED BLOOD CELL COUNT(AUTO) 3.89 MIL/uL (4.20-6.10); RED CELL DISTRIBUTION WIDTH 13.5 % (11.6-13.7); WHITE BLOOD COUNT (AUTO) 11.1 K/uL (4.8-10.8)
[2023-11-11] MEDS: ATORVASTATIN 20 MG TAB PO SCH (20:55)
[2023-11-11] MEDS: METOPROLOL 25 MG TAB PO SCH (20:55)
[2023-11-12] VITALS: BP 155/90; PULSE 70; PULSE 75; RESP 19; TEMP 98.2; O2SAT 98
[2023-11-12 04:00] VITALS: BP 130/78; PULSE 78; PULSE 80; RESP 18; TEMP 97.7; O2SAT 94
[2023-11-12 05:24] LABS: BASOPHILS # (AUTO) 0.1 K/uL (0.00-0.22); BASOPHILS % (AUTO) 0.7 % (0.0-2.0); EOSINOPHILS # (AUTO) 0.3 K/uL (0-0.4); EOSINOPHILS % (AUTO) 3.4 % (0.0-4.0); HEMATOCRIT 31.3 % (36-52); HEMOGLOBIN 10.6 g/dL (12.0-18.0); LYMPHOCYTES # (AUTO) 1.2 K/uL (2.0-11.5); LYMPHOCYTES % (AUTO) 11.8 % (20.5-51.1); MEAN CORPUSCULAR HEMOGLOBIN 29 pg (27-31); MEAN CORPUSCULAR HGB CONC 34 g/dL (33-37); MEAN CORPUSCULAR VOLUME 86.8 fL (80-94); MONOCYTES # (AUTO) 0.4 K/uL (0.8-1.0); MONOCYTES % (AUTO) 4.3 % (1.7-9.3); NEUTROPHILS % (AUTO) 79.8 % (42.2-75.2); PLATELET COUNT (AUTO) 289 K/uL (140-450); RED BLOOD CELL COUNT(AUTO) 3.61 MIL/uL (4.20-6.10); RED CELL DISTRIBUTION WIDTH 13.6 % (11.6-13.7)
[2023-11-12 05:54] LABS: ALBUMIN 2.1 g/dL (3.4-5.0); ANION GAP 7.5 (8-16); CALCIUM 7.9 mg/dL (8.5-10.1); CARBON DIOXIDE 30.1 mmol/L (21-32); CREATININE 1.6 mg/dL (0.6-1.3); MAGNESIUM 1.6 mg/dL (1.8-2.4); PHOSPHORUS 3.1 mg/dL (2.5-4.9); POTASSIUM 3.6 mmol/L (3.5-5.1); TOTAL BILIRUBIN 0.8 mg/dL (0.0-1.0); TOTAL PROTEIN, SERUM 5.8 g/dL (6.4-8.2)
[2023-11-12 08:00] VITALS: BP 135/82; PULSE 84; RESP 19; TEMP 98.2; O2SAT 99
[2023-11-12] MEDS ORDERED: NON-FORMULARY ITEM (Omeprazole* (Prilosec*) 1 CAP) PO SCH (09:00)
[2023-11-12 12:00] VITALS: BP 149/80; PULSE 82; RESP 18; TEMP 98.9; O2SAT 96
[2023-11-12] MEDS: amLODIPine 5 MG TAB PO SCH (12:43)
[2023-11-12] MEDS: LOSARTAN 50 MG TAB PO SCH (12:43)
[2023-11-12] MEDS: PANTOPRAZOLE 40 MG TABEC PO SCH (12:44)
[2023-11-12 16:00] VITALS: BP 138/85; PULSE 73; RESP 18; TEMP 97.7; O2SAT 96
[2023-11-12 20:00] VITALS: BP 144/89; PULSE 79; RESP 18; TEMP 97; O2SAT 97
[2023-11-12] MEDS: MEROPENEM 1,000 MG in NACL 0.9% 50 ML IV SCH (20:12)
[2023-11-12] MEDS: MAG SULF 2000 MG/WATER PREMIX 50 ML IV SCH (20:47)
[2023-11-13] VITALS: BP 121/68; PULSE 66; PULSE 67; RESP 18; TEMP 97.1; O2SAT 96
[2023-11-13 04:00] VITALS: BP 138/75; PULSE 76; PULSE 77; RESP 18; TEMP 97.9; O2SAT 98
[2023-11-13 05:31] LABS: BASOPHILS # (AUTO) 0.1 K/uL (0.00-0.22); BASOPHILS % (AUTO) 0.8 % (0.0-2.0); EOSINOPHILS # (AUTO) 0.3 K/uL (0-0.4); EOSINOPHILS % (AUTO) 3.1 % (0.0-4.0); HEMATOCRIT 30.7 % (36-52); HEMOGLOBIN 10.4 g/dL (12.0-18.0); LYMPHOCYTES # (AUTO) 0.9 K/uL (2.0-11.5); LYMPHOCYTES % (AUTO) 10.9 % (20.5-51.1); MEAN CORPUSCULAR HEMOGLOBIN 29 pg (27-31); MEAN CORPUSCULAR HGB CONC 34 g/dL (33-37); MEAN CORPUSCULAR VOLUME 86.1 fL (80-94); MONOCYTES # (AUTO) 0.5 K/uL (0.8-1.0); MONOCYTES % (AUTO) 6.1 % (1.7-9.3); NEUTROPHILS # (AUTO) 6.7 K/uL (1.8-7.7); NEUTROPHILS % (AUTO) 79.1 % (42.2-75.2); PLATELET COUNT (AUTO) 275 K/uL (140-450); RED BLOOD CELL COUNT(AUTO) 3.56 MIL/uL (4.20-6.10); RED CELL DISTRIBUTION WIDTH 13.9 % (11.6-13.7); WHITE BLOOD COUNT (AUTO) 8.5 K/uL (4.8-10.8)
[2023-11-13 05:32] LABS: ANION GAP 9.3 (8-16); CALCIUM 7.8 mg/dL (8.5-10.1); CARBON DIOXIDE 28.3 mmol/L (21-32); CREATININE 1.4 mg/dL (0.6-1.3); POTASSIUM 3.6 mmol/L (3.5-5.1)
[2023-11-13 08:00] VITALS: BP 141/84; PULSE 79; PULSE 80; PULSE 87; RESP 18; RESP 20; TEMP 97; TEMP 97.2; O2SAT 96; O2SAT 97
[2023-11-13 12:00] VITALS: BP 138/80; PULSE 88; RESP 18; TEMP 97.3; O2SAT 96
[2023-11-13 16:00] VITALS: BP 132/82; PULSE 79; RESP 18; TEMP 98; O2SAT 96
[2023-11-13 20:00] VITALS: BP 134/79; PULSE 82; RESP 18; TEMP 98; O2SAT 99
[2023-11-14] VITALS: BP 134/79; PULSE 82; RESP 18; TEMP 98; O2SAT 99
[2023-11-14 04:00] VITALS: BP 144/84; PULSE 76; RESP 17; TEMP 98.4; O2SAT 99
[2023-11-14 05:56] LABS: BASOPHILS % (AUTO) 0.4 % (0.0-2.0); EOSINOPHILS # (AUTO) 0.2 K/uL (0-0.4); EOSINOPHILS % (AUTO) 3.2 % (0.0-4.0); HEMATOCRIT 30.5 % (36-52); HEMOGLOBIN 10.3 g/dL (12.0-18.0); LYMPHOCYTES # (AUTO) 0.8 K/uL (2.0-11.5); LYMPHOCYTES % (AUTO) 11.5 % (20.5-51.1); MEAN CORPUSCULAR HEMOGLOBIN 29 pg (27-31); MEAN CORPUSCULAR HGB CONC 34 g/dL (33-37); MEAN CORPUSCULAR VOLUME 86.2 fL (80-94); MONOCYTES # (AUTO) 0.3 K/uL (0.8-1.0); MONOCYTES % (AUTO) 4.7 % (1.7-9.3); NEUTROPHILS # (AUTO) 5.4 K/uL (1.8-7.7); NEUTROPHILS % (AUTO) 80.2 % (42.2-75.2); PLATELET COUNT (AUTO) 289 K/uL (140-450); RED BLOOD CELL COUNT(AUTO) 3.53 MIL/uL (4.20-6.10); RED CELL DISTRIBUTION WIDTH 13.9 % (11.6-13.7); WHITE BLOOD COUNT (AUTO) 6.8 K/uL (4.8-10.8)
[2023-11-14 06:22] LABS: ALBUMIN 2.1 g/dL (3.4-5.0); ANION GAP 9.8 (8-16); CALCIUM 7.9 mg/dL (8.5-10.1); CREATININE 1.3 mg/dL (0.6-1.3); POTASSIUM 3.8 mmol/L (3.5-5.1); TOTAL BILIRUBIN 0.7 mg/dL (0.0-1.0); TOTAL PROTEIN, SERUM 5.6 g/dL (6.4-8.2)
[2023-11-14 08:00] VITALS: BP 148/84; PULSE 82; RESP 18; TEMP 98.4; O2SAT 96
[2023-11-14 12:00] VITALS: BP 148/84; PULSE 82; RESP 18; TEMP 98.4; O2SAT 96
[2023-11-14 16:00] VITALS: BP 143/83; PULSE 90; RESP 18; TEMP 98; O2SAT 97
[2023-11-14] MEDS ORDERED: HYDROcodone/APAP 5/325 MG 1 TAB TAB PO PRN (18:15)
[2023-11-14] MEDS: FUROSEMIDE 20 MG TAB PO SCH (19:15)
[2023-11-14 20:00] VITALS: BP 139/89; PULSE 87; RESP 18; TEMP 98.3; O2SAT 96
[2023-11-15 05:53] LABS: BASOPHILS # (AUTO) 0.1 K/uL (0.00-0.22); BASOPHILS % (AUTO) 1.4 % (0.0-2.0); EOSINOPHILS # (AUTO) 0.2 K/uL (0-0.4); EOSINOPHILS % (AUTO) 2.7 % (0.0-4.0); HEMATOCRIT 31.3 % (36-52); HEMOGLOBIN 10.6 g/dL (12.0-18.0); LYMPHOCYTES # (AUTO) 0.8 K/uL (2.0-11.5); LYMPHOCYTES % (AUTO) 12.6 % (20.5-51.1); MEAN CORPUSCULAR HEMOGLOBIN 29 pg (27-31); MEAN CORPUSCULAR HGB CONC 34 g/dL (33-37); MEAN CORPUSCULAR VOLUME 85.8 fL (80-94); MONOCYTES # (AUTO) 0.4 K/uL (0.8-1.0); MONOCYTES % (AUTO) 6.9 % (1.7-9.3); NEUTROPHILS # (AUTO) 4.6 K/uL (1.8-7.7); NEUTROPHILS % (AUTO) 76.4 % (42.2-75.2); PLATELET COUNT (AUTO) 297 K/uL (140-450); RED BLOOD CELL COUNT(AUTO) 3.64 MIL/uL (4.20-6.10); RED CELL DISTRIBUTION WIDTH 14.1 % (11.6-13.7)
[2023-11-15 06:18] LABS: ANION GAP 12.8 (8-16); CALCIUM 7.9 mg/dL (8.5-10.1); CARBON DIOXIDE 24.3 mmol/L (21-32); CREATININE 1.3 mg/dL (0.6-1.3); POTASSIUM 4.1 mmol/L (3.5-5.1)
[2023-11-15 08:00] VITALS: BP 137/84; PULSE 86; RESP 18; TEMP 97.6; O2SAT 96
[2023-11-15 16:00] VITALS: BP 145/80; PULSE 85; RESP 18; TEMP 97.6; O2SAT 97
[2023-11-15 20:00] VITALS: PULSE 94; RESP 18; TEMP 97.9; O2SAT 98
[2023-11-16] VITALS: BP 121/77; PULSE 94; RESP 18; TEMP 97.9; O2SAT 98
[2023-11-16 05:15] LABS: BASOPHILS % (AUTO) 0.5 % (0.0-2.0); EOSINOPHILS # (AUTO) 0.2 K/uL (0-0.4); EOSINOPHILS % (AUTO) 4.2 % (0.0-4.0); HEMATOCRIT 31.1 % (36-52); HEMOGLOBIN 10.7 g/dL (12.0-18.0); LYMPHOCYTES # (AUTO) 0.8 K/uL (2.0-11.5); LYMPHOCYTES % (AUTO) 15.4 % (20.5-51.1); MEAN CORPUSCULAR HEMOGLOBIN 29 pg (27-31); MEAN CORPUSCULAR HGB CONC 34 g/dL (33-37); MEAN CORPUSCULAR VOLUME 85.7 fL (80-94); MONOCYTES # (AUTO) 0.4 K/uL (0.8-1.0); NEUTROPHILS # (AUTO) 3.8 K/uL (1.8-7.7); NEUTROPHILS % (AUTO) 71.9 % (42.2-75.2); PLATELET COUNT (AUTO) 308 K/uL (140-450); RED BLOOD CELL COUNT(AUTO) 3.63 MIL/uL (4.20-6.10); RED CELL DISTRIBUTION WIDTH 14.5 % (11.6-13.7); WHITE BLOOD COUNT (AUTO) 5.2 K/uL (4.8-10.8)
[2023-11-16 06:00] LABS: ALBUMIN 2.3 g/dL (3.4-5.0); ANION GAP 10.7 (8-16); CALCIUM 8.4 mg/dL (8.5-10.1); CREATININE 1.3 mg/dL (0.6-1.3); POTASSIUM 3.7 mmol/L (3.5-5.1); TOTAL BILIRUBIN 0.7 mg/dL (0.0-1.0); TOTAL PROTEIN, SERUM 6.3 g/dL (6.4-8.2)
[2023-11-16 08:00] VITALS: BP 138/71; PULSE 95; RESP 18; TEMP 97.2; O2SAT 96; O2SAT 98
[2023-11-16] MEDS: ACETAMINOPHEN 325 MG TAB PO PRN (10:42)
[2023-11-16 12:04] VITALS: PULSE 68; RESP 20; O2SAT 97
[2023-11-16 16:00] VITALS: BP 135/66; PULSE 100; RESP 18; TEMP 97.8; O2SAT 98
[2023-11-16] MEDS ORDERED: CIPR500T4 PO (16:56)
[2023-11-16] MEDS ORDERED: METR-520 PO (16:56)
[2023-11-16 17:02] VITALS: BP 135/66; PULSE 100; RESP 18; TEMP 97.8
== END 2023-11-16 17:29 | disposition home or self-care (01) | DRG 871 ==
LOC: MED 19:17 → MTU 11-10 02:51 → UNDOADMIN 11-10 02:55 → MTU 11-10 03:43
PROVIDERS: ADMIT Preventive Medicine Preventive Medicine/Occupational Environmental Medicine; ATTEND Preventive Medicine Preventive Medicine/Occupational Environmental Medicine
DX: A41.9 Sepsis, unspecified organism (principal); E43 Unspecified severe protein-calorie malnutrition; K75.0 Abscess of liver; R65.21 Severe sepsis with septic shock; K65.1 Peritoneal abscess; N17.9 Acute kidney failure, unspecified; T81.49XA Infection following a procedure, other surgical site, initial encounter; K81.0 Acute cholecystitis; E11.65 Type 2 diabetes mellitus with hyperglycemia; I10 Essential (primary) hypertension; D64.9 Anemia, unspecified; E83.51 Hypocalcemia; E78.5 Hyperlipidemia, unspecified; I25.10 Atherosclerotic heart disease of native coronary artery without angina pectoris; E88.09 Other disorders of plasma-protein metabolism, not elsewhere classified; N20.0 Calculus of kidney; K81.9 Cholecystitis, unspecified; Z87.442 Personal history of urinary calculi; Z88.0 Allergy status to penicillin; Z90.49 Acquired absence of other specified parts of digestive tract; Z93.3 Colostomy status; Z95.1 Presence of aortocoronary bypass graft; Z88.1 Allergy status to other antibiotic agents; Z79.899 Other long term (current) drug therapy; Z68.31 Body mass index [BMI] 31.0-31.9, adult
CPT/HCPCS: 36415; 80048; 80053; 82948; 83690; 83735; 84100; 85025; 85610; 85651; 86140; 87040; 93970; 96365; 99291; J0744; J1815; J2185; J3475; J3490; Q0092; Q9967